=== PATIENT | male | born 1990 | race Caucasian/White ===

== ENCOUNTER 2016-07-24 16:10 | Emergency (ER) | payer MEDICAID ==
[2016-07-24 16:21] VITALS: TEMP 97.3
[2016-07-24] MEDS ORDERED: NS 1,000 ML IV ONE (16:47)
[2016-07-24 16:52] LABS: % IMMATURE GRANULYOCYTES 0.1 % (0.0-1.1); ABSOLUTE IMMATURE GRANULOCYTES 0.01 10^3/uL (0.00-0.10); ADD DIFF? NO; ADD MORPH? NO; ADD SCAN? NO; ATYPICAL LYMPHOCYTE FLAG 60 (0-99); FRAGMENT RBC FLAG 0 (0-99); HEMATOCRIT 48.1 % (40.0-51.0); HEMOGLOBIN 17.6 g/dL (13.7-17.5); LEFT SHIFT FLG 0 (0-99); LIPEMIA HEMOLYSIS FLAG 90 (0-99); MEAN CELL HEMOGLOBIN 32.7 pg (27.9-34.1); MEAN CELL HEMOGLOBIN CONCENTR. 36.6 g/dL (32.4-36.7); MEAN CELL VOLUME 89.4 fL (81.5-99.8); MEAN PLATELET VOLUME 11.7 fL (8.7-11.7); PLATELET CLUMPS FLAG 10 (0-99); PLATELET COUNT 199 10^3/uL (150-400); RED BLOOD CELL COUNT 5.38 10^6/uL (4.40-6.38); RED CELL DISTRIBUTION WIDTH 12.3 % (11.5-15.2)
[2016-07-24 17:02] LABS: PROTIME(PATIENT) 13.1 SEC (12.0-15.0)
--- NOTE | 2016-07-24 17:07 | EDPHY ---
HPI/HX/ROS/PE/MDM Narrative: CHIEF COMPLAINT: "I feel terrible" HPI: The patient is a 26 y/o male, with a history of diabetes, [place] from a bar complaining of feeling terrible and like his blood sugar is low. He reports his BGL has been fluctuating a lot recently and this morning, "my blood sugar felt low so I took 25 units around 10:00." He then "drank orange juice, maple syrup, and 7 pops to get my sugar up." He is unable to describe his symptoms apart from feeling "terrible" and "going cross-eyed." He did not check his BGL while these symptoms were present. He was apparently assessed by EMS at the bar , had his BGL checked, vomited, and ultimately refused transport. Further history limited as patient is a poor historian. REVIEW OF SYSTEMS: Aside from elements discussed in the HPI, a comprehensive 10-point review of systems was reviewed and is negative. PMH: Diabetes SOCIAL HISTORY: Denies alcohol or drug use today PHYSICAL EXAM: General:Patient is alert, in no acute distress. ENT:Eyes are normal to inspection. ENT inspection normal. Neck: Normal inspection. Full range of motion. Respiratory:No respiratory distress. Breath sounds normal bilaterally. Cardiovascular: Regular rate and rhythm. Strong peripheral pulses. Normal cap refill. Abdomen:The abdomen is nontender to palpation. There are no peritoneal signs. There are normal bowel sounds. Back: Normal to inspection. No tenderness to palpation. Skin: Normal color. No rash. Warm and dry. Extremities: Normal appearance. Full range of motion. Neuro: Oriented x3. Normal motor function. Normal sensory function. ED Course: IV established. Labs drawn including CBC, CHEM, lipase, LFT, PTPTT. 1L IV NS administered. 1705: Spoke with EMS crew that evaluated patient on scene earlier today. The medic reports the patient said he took 25 units of insulin instead of his normal 15 units this morning because his BGL has been high recently. When they assessed him on scene, his BGL was 48. They administered oral glucose, improving his BGL to 61. The patient vomited clear emesis once and refused transport to the ED. The medic heavily encouraged him to eat a large meal as soon as possible and go to the ED if his symptoms didn't improve. The patient said he would go to [facility]. 1800: BGL 63. Will continue to monitor BGL. 1909: BGL 99. 2019: BGL 260. Patient will be discharged home with instructions to follow up with his PCP on Wednesday. MDM: This patient presents to the emergency department with an unusual story, primarily focused on low blood sugar readings. His description of what happened prior to arrival at the hospital does not seem to line up with what EMS is able to tell us. The fact that the patient arrived from a bar certainly suggests that alcohol or other substances may be playing a role, but the patient denies this. We checked serial blood sugars here in the emergency department which are normal and continue to rise. I suspect the patient either inappropriately dosed himself with insulin or possibly was altered secondary to other means. I either way I see no signs of infectious process, hypoglycemia , hyperglycemia or DKA. - Data Points Laboratory Results: Laboratory Results 07/24/16 16:39 07/24/16 16:39 07/24/16 07/24/16 07/24/16 20:04 19:04 17:56 WBC RBC Hgb POC Hgb 15.3 gm/dL gm/dL (14.5-17.3) Hct POC Hct 45 % % (42.8-50.6) MCV MCH MCHC RDW Plt Count MPV Neut % (Auto) Lymph % (Auto) [place] % (Auto) Eos % (Auto) Baso % (Auto) Nucleat RBC Rel Count Absolute Neuts (auto) Absolute Lymphs (auto) Absolute Monos (auto) Absolute Eos (auto) Absolute Basos (auto) Absolute Nucleated RBC Immature Gran % Immature Gran # PT INR APTT POC Sodium 138 mEq/L mEq/L (134-144) Sodium POC Potassium 5.3 mEq/L H mEq/L (3.3-5.0) Potassium POC Chloride 100 mEq/L mEq/L (96-108) Chloride Carbon Dioxide Anion Gap POC BUN 14 mg/dL mg/dL (7-23) BUN Creatinine POC Creatinine 0.9 mg/dL mg/dL (0.8-1.5) Estimated GFR Glucose POC Glucose 294 mg/dL H mg/dL 99 mg/dL mg/dL 63 mg/dL L mg/dL (70-100) (70-100) (70-100) Calcium Total Bilirubin Conjugated Bilirubin Unconjugated Bilirubin AST ALT Alkaline Phosphatase Total Protein Albumin Lipase 07/24/16 07/24/1617 16:39 16:39 16:39 WBC 6.89 10^3/uL 10^3/uL (3.80-9.50) RBC 5.38 10^6/uL 10^6/uL (4.40-6.38) Hgb 17.6 g/dL H g/dL (13.7-17.5) POC Hgb Hct 48.1 % % (40.0-51.0) POC Hct MCV 89.4 fL fL (81.5-99.8) MCH 32.7 pg pg (27.9-34.1) MCHC 36.6 g/dL g/dL (32.4-36.7) RDW 12.3 % % (11.5-15.2) Plt Count 199 10^3/uL 10^3/uL (150-400) MPV 11.7 fL fL (8.7-11.7) Neut % (Auto) 71.8 % % (39.3-74.2) Lymph % (Auto) 14.8 % L % (15.0-45.0) [place] % (Auto) 13.2 % H % (4.5-13.0) Eos % (Auto) 0.0 % L % (0.6-7.6) Baso % (Auto) 0.1 % L % (0.3-1.7) Nucleat RBC Rel Count 0.0 % % (0.0-0.2) Absolute Neuts (auto) 4.94 10^3/uL 10^3/uL (1.70-6.50) Absolute Lymphs (auto) 1.02 10^3/uL 10^3/uL (1.00-3.00) Absolute Monos (auto) 0.91 10^3/uL H 10^3/uL (0.30-0.80) Absolute Eos (auto) 0.00 10^3/uL L 10^3/uL (0.03-0.40) Absolute Basos (auto) 0.01 10^3/uL L 10^3/uL (0.02-0.10) Absolute Nucleated RBC 0.00 10^3/uL 10^3/uL (0-0.01) Immature Gran % 0.1 % % (0.0-1.1) Immature Gran # 0.01 10^3/uL 10^3/uL (0.00-0.10) PT 13.1 SEC SEC (12.0-15.0) INR 1.00 (0.83-1.16) APTT 28.0 SEC SEC (23.0-38.0) POC Sodium Sodium 137 mEq/L mEq/L (134-144) POC Potassium Potassium 3.8 mEq/L mEq/L (3.5-5.2) POC Chloride Chloride 97 mEq/L mEq/L (97-110) Carbon Dioxide 28 mEq/l mEq/l (22-31) Anion Gap 12 mEq/L mEq/L (8-16) POC BUN BUN 13 mg/dL mg/dL (7-23) Creatinine 0.9 mg/dL mg/dL (0.7-1.3) POC Creatinine Estimated GFR > 60 Glucose 89 mg/dL mg/dL (70-100) POC Glucose Calcium 9.1 mg/dL mg/dL (8.5-10.4) Total Bilirubin 0.8 mg/dL mg/dL (0.1-1.4) Conjugated Bilirubin 0.3 mg/dL mg/dL (0.0-0.5) Unconjugated Bilirubin 0.5 mg/dL mg/dL (0.0-1.1) AST 53 IU/L IU/L (17-59) ALT 46 IU/L IU/L (21-72) Alkaline Phosphatase 125 IU/L IU/L (38-126) Total Protein 7.7 g/dL g/dL (6.3-8.2) Albumin 4.5 g/dL g/dL (3.5-5.0) Lipase 32.0 IU/L IU/L (23-300) Medications Given: Discontinued Medications Sodium Chloride (Ns) 1,000 mls @ 0 mls/hr IV ONCE ONE PRN Reason: Wide Open Stop: 07/24/16 16:48 Last Admin: 07/24/16 17:00 Dose: 1,000 mls Point of Care Test Results: 07/24/16 07/24/16 07/24/16 17:56 19:04 20:04 POC Sodium 138 POC Potassium 5.3 H POC Chloride 100 POC BUN 14 POC Creatinine 0.9 POC Glucose 63 L 99 294 H General Time Seen by Provider: 07/24/16 16:35 Initial Vital Signs: Initial Vital Signs Temperature (C) 36.3 C 07/24/16 16:18 Heart Rate 79 07/24/16 16:18 Respiratory Rate 16 07/24/16 16:18 Blood Pressure 135/94 H 07/24/16 16:18 O2 Sat (%) 98 07/24/16 16:18 O2 Delivery Mode Room Air Allergies/Adverse Reactions: No Known Allergies Allergy (Unverified 07/24/16 16:17) Home Medications: Medication Instructions Recorded Levemir 07/24/16 Novolog 07/24/16 Departure - Departure Disposition: Home, Routine, Self-Care Clinical Impression: Hypoglycemia, Altered mental status Condition: Good Instructions: Hypoglycemia in a Person with Diabetes (ED) Additional Instructions: Take your medications as directed and check your blood sugar regularly. Follow up with your primary care provider on Wednesday for continued issues with your blood sugar. Return to the ED for any worsening of condition. Referrals: [facility],. [Clinic] - As per Instructions Report Scribed for: Keith Stewart Report Scribed by: Yuli Khan Date of Report: 07/24/16 Time of Report: 16:41 Physician Review and Approval Statement: Portions of this note were transcribed by an ED scribe. I personally performed the history, physical exam, and medical decision making; and confirm the accuracy of the information in the transcribed note.
[2016-07-24 17:14] LABS: ALANINE AMINOTRANSFERASE 46 IU/L (21-72); ALBUMIN 4.5 g/dL (3.5-5.0); ALKALINE PHOSPHATASE 125 IU/L (38-126); ANION GAP 12 mEq/L (8-16); ASPARTATE AMINOTRANSFERASE 53 IU/L (17-59); BILIRUBIN,TOTAL 0.8 mg/dL (0.1-1.4); BILIRUBIN-CONJUGATED 0.3 mg/dL (0.0-0.5); BILIRUBIN-UNCONJUGATED 0.5 mg/dL (0.0-1.1); CALCIUM 9.1 mg/dL (8.5-10.4); CARBON DIOXIDE 28 mEq/l (22-31); CHLORIDE 97 mEq/L (97-110); CREATININE 0.9 mg/dL (0.7-1.3); GLOMERULAR FILTRATION RATE > 60; GLUCOSE 89 mg/dL (70-100); POTASSIUM 3.8 mEq/L (3.5-5.2); SODIUM 137 mEq/L (134-144); TOTAL PROTEIN 7.7 g/dL (6.3-8.2)
[2016-07-24 21:19] VITALS: BP 125/81; PULSE 97; RESP 12; O2SAT 95
== END 2016-07-24 21:22 | disposition home or self-care (01) ==
DX: E11.649 Type 2 diabetes mellitus with hypoglycemia without coma (principal); R41.82 Altered mental status, unspecified; Z79.4 Long term (current) use of insulin
CPT/HCPCS: 82947-QW

== ENCOUNTER 2016-09-28 09:51 | Emergency (ER) | payer MEDICAID ==
--- NOTE | 2016-09-28 09:50 | EDPHY ---
H & P Time Seen by Provider: 09/28/16 09:50 HPI/ROS: CHIEF COMPLAINT: glucose 22 HISTORY OF PRESENT ILLNESS: Patient has a long history of insulin-dependent diabetes and thinks he over did it last night. He had some sugared soda with dinner (myers stew) and took 15 units of NovoLog which he thinks he only should have taken 10. This morning his girlfriend noted him to be altered and hard to wake up and after 40 minutes of this she got him to the [facility] using [facility]. She did not report any seizure activity. At that time his glucose is noted to be 22 and he was transported by EMS. He got IV glucose and IM glucagon and on arrival he feels fine and is normally alert and conversant. REVIEW OF SYSTEMS: Eye: no change in vision ENT: no sore throat Cardiac: no chest pain or syncope Pulmonary: no cough or SOB Abdomen: no vomiting, diarrhea, abdominal pain Musculoskeletal: no back pain Skin: no rash Neuro: no headache Constitutional: no fever : no urinary symptoms A comprehensive 10 point review of systems is otherwise negative aside from elements mentioned in the history of present illness. PAST MEDICAL HISTORY: Includes diabetes type I and possible hemochromatosis Social history: Some alcohol last night, no drugs, here with his girlfriend. General Appearance: Alert and conversant, cooperative. Eyes: No scleral icterus. ENT, Mouth: Normal mucous membranes. No tongue laceration or abrasion. Respiratory: Normal respiratory effort, breath sounds equal, lungs are clear to auscultation. Cardiovascular: Regular rate and rhythm. Gastrointestinal: Abdomen is soft and non tender. Neurological: Alert and oriented x3. Normally conversant. Face symmetric, normal movement and sensation in all extremities. Not tremulous. Skin: Warm and dry, no rashes. Musculoskeletal: No peripheral edema and no joint swelling. Psychiatric: Not agitated. Emergency Department course/MDM: Patient ate food in the emergency department. His history is that he gave himself too much insulin in relation to his carbohydrate intake. Case discussed with Dr. Rm his overlock collar setter. She recommends that he is able to tolerate food and does not have repeat hypoglycemia he could be safely discharged with instructions to call her office today to discuss further insulin dosing. Repeat glucose in the emergency department is 270. I think that stroke or seizure or cardiac problem or intracranial trauma or other metabolic abnormality are all unlikely. Constitutional: Initial Vital Signs Temperature (C) 36.2 C 09/28/16 10:02 Heart Rate 87 09/28/16 10:02 Respiratory Rate 16 09/28/16 10:02 Blood Pressure 131/89 H 09/28/16 10:02 O2 Sat (%) 95 09/28/16 10:02 O2 Delivery Mode Room Air Allergies/Adverse Reactions: No Known Allergies Allergy (Unverified 07/24/16 16:17) Home Medications: Medication Instructions Recorded Levemir 07/24/16 Novolog 07/24/16 Lantus 100 UNITS/ML (*) 09/28/16 Medical Decision Making Differential Diagnosis: Differential for altered mental status considered including but not limited to hypoglycemia, head trauma, seizure, hypoglycemia Consult/Admit Bed Type: [place] [id number] - Data Points Laboratory Results: 09/28/16 10:31 POC Hgb 16.3 gm/dL gm/dL (14.5-17.3) POC Hct 48 % % (42.8-50.6) POC Sodium 140 mEq/L mEq/L (134-144) POC Potassium 4.5 mEq/L mEq/L (3.3-5.0) POC Chloride 99 mEq/L mEq/L (96-108) POC BUN 16 mg/dL mg/dL (7-23) POC Creatinine 0.9 mg/dL mg/dL (0.8-1.5) POC Glucose 270 mg/dL H mg/dL (70-100) Point of Care Test Results: 09/28/16 10:31 POC Sodium 140 POC Potassium 4.5 POC Chloride 99 POC BUN 16 POC Creatinine 0.9 POC Glucose 270 H Departure - Departure Disposition: Home, Routine, Self-Care Clinical Impression: Hypoglycemia due to type 1 diabetes mellitus Condition: Good Instructions: Hypoglycemia in a Person with Diabetes (ED) Referrals: Patient,NotPresent [Unknown] - As per Instructions Barbara Rm MD [Primary Care Provider] - As per Instructions
[2016-09-28 10:04] VITALS: RESP 16
[2016-09-28 11:46] VITALS: BP 134/95; PULSE 89; TEMP 98.4; O2SAT 94
== END 2016-09-28 12:12 | disposition home or self-care (01) ==
LOC: EDUNIT#
DX: E10.649 Type 1 diabetes mellitus with hypoglycemia without coma (principal)
CPT/HCPCS: 82947-QW

== ENCOUNTER 2016-11-02 11:54 | Inpatient (IN) | payer MEDICAID ==
[2016-11-02] MEDS ORDERED: NS 1,000 ML IV ONE ×3 (12:17→13:36)
[2016-11-02] MEDS ORDERED: ONDANSETRON 4 MG/2 ML VIAL IVP ONE (12:17)
--- NOTE | 2016-11-02 12:28 | EDPHY ---
H & P Smoking Status: Current every day smoker Time Seen by Provider: 11/02/16 12:13 HPI/ROS: CHIEF COMPLAINT: Vomiting, dehydration, insulin-dependent diabetic HISTORY OF PRESENT ILLNESS: 26-year-old male presents to the emergency department by private vehicle with multiple episodes of vomiting since last evening around 9:00 p.m.. The patient states that he continued to vomit all night long. He did urinate a small amount this morning. No diarrhea. He denies abdominal pain. He feels extremely dehydrated and achy all over. He denies chest pain or difficulty breathing. Denies headache. Denies neck or back pain. No reported trauma. No known ill contacts. He smokes marijuana every other day. No recent alcohol. He took his blood sugar this morning and it was over 400. He gave himself 3 units of NovoLog approximately 1 hour ago, 11 :30 a.m.. REVIEW OF SYSTEMS: Constitutional: No fever, no chills. Eyes: No double or blurry vision. ENT: No sore throat. Respiratory: No cough, no shortness of breath. Cardiac: No chest pain. Gastrointestinal: Vomiting as above. No diarrhea. Genitourinary: No dysuria. Musculoskeletal: No neck or back pain. Skin: No rashes. Neurological: No headache. (Claudine Copeland) Past Medical/Surgical History: The insulin-dependent diabetes since age 6. Last hemoglobin A1c was 5 months ago and was over 8. (Claudine Copeland) Social History: Single (Claudine Copeland) Physical Exam: General Appearance: Lethargic 122/76, heart rate 95, 95% on room air. Eyes: Pupils equal and round. Extraocular motions are all intact. Mild injection noted to the right eye without exudate. Left eye is clear. ENT: Mouth: Mucous membranes very dry. Respiratory: No wheezing, rhonchi, or rales, lungs are clear to auscultation. Cardiovascular: Regular rate and rhythm. Gastrointestinal: Abdomen is soft and nontender, no masses, no rebound or guarding, bowel sounds normal. Neurological: Alert and oriented x 3, cranial nerves II through XII grossly intact Skin: Warm and dry, no rashes. Musculoskeletal: Nontender to palpate along the cervical, thoracic or lumbar spine. Neck is supple. Extremities: Full range of motion and no peripheral edema. Psychiatric: Patient is oriented X 3, there is no agitation. (Claudine Copeland) Constitutional: Initial Vital Signs Temperature (C) 36.4 C 11/02/16 11:56 Heart Rate 95 11/02/16 11:56 Respiratory Rate 18 11/02/16 11:56 Blood Pressure 122/76 H 11/02/16 11:56 O2 Sat (%) 95 11/02/16 11:56 O2 Delivery Mode Room Air Allergies/Adverse Reactions: No Known Allergies Allergy (Verified 11/02/16 11:55) Home Medications: Medication Instructions Recorded Insulin Aspart [Novolog Flexpen] 15 - 25 unit SQ TIDMEAL 11/02/16 Insulin Detemir [Levemir Flextouch] 20 - 30 unit SQ HS 11/02/16 Medical Decision Making ED Course/Re-evaluation: 26-year-old male known history of insulin-dependent diabetes presents with vomiting and dehydration. The patient woke up this morning and had a blood sugar over 400 gave himself 3 units of NovoLog. He presented to the emergency department. Initial potassium was high at 6.3. Sodium 133, CO2 of 12 with a calculated anion gap of 24. Blood sugar was 450. Clinically I think this patient is in diabetic ketoacidosis. He received 2 L of IV normal saline initially and then is on his 3rd and 4th L currently. Patient apparently gave himself 4 units of NovoLog insulin while he was in the emergency department around 1:00 p.m.. I explained to the patient that is very important that he does not give himself his own medication while he is in the hospital. Patient verbalized understanding and agreed. Patient will be admitted to the ICU with DKA to Dr. Shelby. Case was discussed with Dr. Nicholas Darling who also evaluated the patient. The patient was started on insulin drip in the emergency department. (Claudine Copeland) Differential Diagnosis: Including but not limited to gastritis, dehydration, diabetic ketoacidosis, sepsis (Claudine Copeland) - Data Points Laboratory Results: Laboratory Results 11/02/16 12:20 11/02/16 12:20 Medications Given: Discontinued Medications Sodium Chloride (Ns) 1,000 mls @ 0 mls/hr IV ONCE ONE PRN Reason: Wide Open Stop: 11/02/16 12:18 Last Admin: 11/02/16 12:28 Dose: 1,000 mls Sodium Chloride (Ns) 1,000 mls @ 0 mls/hr IV ONCE ONE PRN Reason: Wide Open Stop: 11/02/16 13:11 Last Admin: 11/02/16 13:22 Dose: 1,000 mls Insulin Human Regular 100 unit / Miscellaneous Medication 1 ea/ Sodium Chloride 101 mls @ 6 mls/hr IV EDNOW ONE PRN Reason: Protocol Stop: 11/03/16 05:59 Last Admin: 11/02/16 13:58 Dose: 101 mls Sodium Chloride (Ns) 1,000 mls @ 0 mls/hr IV ONCE ONE PRN Reason: Wide Open Stop: 11/02/16 13:37 Last Admin: 11/02/16 13:37 Dose: 1,000 mls Magnesium Sulfate/Dextrose (Magnesium Sulf 1 Gm (Premix)) 100 mls @ 100 mls/hr IV ONCE ONE Stop: 11/03/16 08:47 Last Admin: 11/03/16 09:33 Dose: Not Given Insulin Glargine (Lantus Syringe) 20 units SC HS RAIZA Stop: 05/01/17 23:29 Last Admin: 11/02/16 23:42 Dose: 20 units Insulin Human Lispro (Humalog Lispro) 0 unit SC TIDMEAL RAIZA PRN Reason: Protocol Stop: 05/02/17 07:59 Last Admin: 11/03/16 06:38 Dose: 10 units Ondansetron HCl (Zofran) 4 mg IVP EDNOW ONE Stop: 11/02/16 12:18 Last Admin: 11/02/16 12:31 Dose: 4 mg Departure - Departure Disposition: [facility] Clinical Impression: Dehydration Diabetic ketoacidosis Qualifiers: Diabetes mellitus type: type 1 Diabetes mellitus complication detail: without coma Qualified Code(s): E10.10 - Type 1 diabetes mellitus with ketoacidosis without coma Condition: Fair
[2016-11-02 12:33] LABS: % IMMATURE GRANULYOCYTES 0.5 % (0.0-1.1); ABSOLUTE IMMATURE GRANULOCYTES 0.13 10^3/uL (0.00-0.10); ADD DIFF? NO; ADD MORPH? NO; ADD SCAN? NO; ATYPICAL LYMPHOCYTE FLAG 0 (0-99); FRAGMENT RBC FLAG 0 (0-99); HEMATOCRIT 51.2 % (40.0-51.0); LEFT SHIFT FLG 0 (0-99); LIPEMIA HEMOLYSIS FLAG 90 (0-99); MEAN CELL HEMOGLOBIN CONCENTR. 35.2 g/dL (32.4-36.7); MEAN CELL VOLUME 93.8 fL (81.5-99.8); MEAN PLATELET VOLUME 12.2 fL (8.7-11.7); PLATELET CLUMPS FLAG 0 (0-99); PLATELET COUNT 295 10^3/uL (150-400); RED BLOOD CELL COUNT 5.46 10^6/uL (4.40-6.38); RED CELL DISTRIBUTION WIDTH 12.7 % (11.5-15.2)
[2016-11-02 12:53] LABS: ANION GAP 24 mEq/L (8-16); CALCIUM 10.1 mg/dL (8.5-10.4); CARBON DIOXIDE 12 mEq/l (22-31); CHLORIDE 98 mEq/L (97-110); CREATININE 1.2 mg/dL (0.7-1.3); GLOMERULAR FILTRATION RATE > 60; GLUCOSE 470 mg/dL (70-100); SODIUM 134 mEq/L (134-144)
[2016-11-02 13:05] LABS: POTASSIUM 6.3 mEq/L (3.5-5.2)
[2016-11-02] MEDS ORDERED: INSULIN REGULAR HUMAN 100 UNIT, COSIGN. REQUIRED 1 EA in NS 100 ML IV ONE (13:10)
--- NOTE | 2016-11-02 13:24 | CPEKG ---
Heart Rate: 94 RR Interval: 638 P-R Interval: 156 QRSD Interval: 80 QT Interval: 344 QTC Interval: 431 P [place]: 76 QRS [place]: 71 T Wave [place]: 53 EKG Severity - NORMAL ECG - EKG Impression: SINUS RHYTHM Electronically Signed By: Aleks Li 02-Nov-2016 15:37:00
[2016-11-02] MEDS ORDERED: ONDANSETRON DISINTEGRATING 4 MG TAB PO PRN (13:40)
[2016-11-02] MEDS ORDERED: ACETAMINOPHEN 325 MG TAB PO PRN (13:40)
[2016-11-02] MEDS ORDERED: ONDANSETRON 4 MG/2 ML VIAL IVP PRN (13:40)
[2016-11-02 13:47] LABS: ANION GAP 17 mEq/L (8-16); CALCIUM 9.2 mg/dL (8.5-10.4); CARBON DIOXIDE 12 mEq/l (22-31); CHLORIDE 104 mEq/L (97-110); CREATININE 1.1 mg/dL (0.7-1.3); GLOMERULAR FILTRATION RATE > 60; GLUCOSE 401 mg/dL (70-100); SODIUM 133 mEq/L (134-144)
[2016-11-02 13:56] LABS: B-HYDROXYBUTYRATE 6.67 mmol/L (0.02-0.27)
--- NOTE | 2016-11-02 14:08 | GHP ---
[f rep st] HISTORY AND PHYSICAL DATE OF ADMISSION: 11/02/2016 CHIEF COMPLAINT: Vomiting. HISTORY OF PRESENT ILLNESS: This is a 26-year-old male with a history of type 1 diabetes. He state s about 9 o'clock last night he started vomiting. He is not having any diarrhea. He denies any abd ominal pain. He has had some cough. Did not eat dinner last night. No upper respiratory tract inf ection symptoms. No dysuria. He does feel achy. REVIEW OF SYSTEMS: A 10-point review of systems was obtained and, unless stated above, was negative . PAST MEDICAL HISTORY: 1. Type 1 diabetes. 2. Possible hemochromatosis. MEDICATIONS: Levemir, NovoLog. SOCIAL HISTORY: Does smoke occasional marijuana. No alcohol. FAMILY HISTORY: Reviewed, noncontributory. PHYSICAL EXAMINATION: VITAL SIGNS: Afebrile. Heart rates in the low 90s, blood pressure 123/82, o xygen saturation 98% on room air. GENERAL: The patient is well developed, in no apparent distress. HEENT: Nonicteric sclerae. Extraocular muscles intact. Dry mucous membranes. NECK: Supple. N o thyromegaly. LUNGS: Good effort. Clear to auscultation bilaterally. CARDIOVASCULAR: Regular r ate and rhythm. No murmurs, gallops. ABDOMEN: Positive bowel sounds. Soft, nontender, nondistend ed. No hepatosplenomegaly. EXTREMITIES: No clubbing, cyanosis, or edema. SKIN: Without rash. Wa rm, dry, and intact. NEUROLOGIC: Moving all 4 extremities equally. PSYCH: Normal affect. LABS: CO2 is 12 with an anion gap of 24. Blood sugar is 470. White count is 25, hemoglobin 18. ASSESSMENT: This is a 26-year-old male with type 1 diabetes, presenting with diabetic ketoacidosis. PLAN: DKA: The patient will be started on DKA protocol. I am unclear of the cause of this episode . He is not endorsing any localizing infectious symptoms. We will continue to monitor his symptoms as he gets better. /[id number]/MODL
[2016-11-02 14:12] LABS: B-HYDROXYBUTYRATE 6.62 mmol/L (0.02-0.27)
[2016-11-02 14:20] VITALS: TEMP 98.6
[2016-11-02] MEDS ORDERED: D50W 25 GM/50 ML SYR IVP PRN (15:29)
[2016-11-02] MEDS ORDERED: D5W 1,000 ML IV SCH (15:29)
[2016-11-02] MEDS ORDERED: INSULIN REGULAR HUMAN 100 UNIT/ML IVP PRN (15:29)
[2016-11-02] MEDS ORDERED: INSULIN REGULAR HUMAN 100 UNIT in NS 100 ML IV SCH ×2 (15:29→15:30)
[2016-11-02] MEDS ORDERED: PROTOCOL MAGNESIUM 1 DOSE IV PRN (15:34)
[2016-11-02] MEDS ORDERED: PROTOCOL POTASSIUM 1 DOSE MISC PRN (15:34)
--- NOTE | 2016-11-02 15:55 | GCON ---
[f rep st] CONSULTATION PULMONARY CRITICAL CARE DATE OF CONSULTATION: 11/02/2016 REFERRING PHYSICIAN: Yanely Shelby MD REASON FOR REFERRAL: Evaluation and management of hyperglycemia and diabetic ketoacidosis. HISTORY OF PRESENT ILLNESS: The patient is a 26-year-old male with a long history of type 1 diabete s. He has had prior admissions for hypoglycemia, but denies any admissions for hyperglycemia. He was well until yesterday when last night he started vomiting. He had about 2 hours of vomiting w ith no diarrhea or abdominal pain. He was unable to keep any food down. Overnight, he started to h ave some bilateral shoulder pain. He presented to the emergency department where he was started on IV fluids for a blood sugar of 470. He has now received 4 L of IV fluid and reports that his should er pain is improved. He has been able to start taking fluids without vomiting. PAST MEDICAL HISTORY: 1. Type 1 diabetes. 2. Possible hemochromatosis. MEDICATIONS: Levemir, NovoLog. ALLERGIES: None. SOCIAL HISTORY: The patient smokes marijuana occasionally. He denies alcohol. FAMILY HISTORY: Unremarkable. REVIEW OF SYSTEMS: A 10-point review of systems is remarkable only for the presence of some redness of his right eye that has not been painful or affected his vision. PHYSICAL EXAMINATION: GENERAL: The patient is awake, alert, and in no acute distress. VITAL SIGNS : Blood pressure is 110/85 with a heart rate of 98. He is afebrile. Oxygen saturations are 96% on room air. HEENT: Normocephalic and atraumatic. He has conjunctival injection on the right. NECK: No adenopathy. Trachea is midline. CHEST: Clear to auscultation. CARDIAC: Regular rate and rh ythm without murmur. ABDOMEN: Soft, nontender. Bowel sounds are present. EXTREMITIES: No clubbi ng, cyanosis, or edema. NEURO: The patient is alert and oriented. There are no gross motor or sen mariluz deficits. LABORATORY: Sodium is 133. Potassium is 7.0, up from 6.3. Anion gap is 17, down from 24. Glucose is 401, down from 470. Beta hydroxybutyrate level is 6.6. Blood gas shows a lactate of 3.6, a whi te blood count is 25.2 with a hemoglobin of 18.4. ASSESSMENT: 1. Diabetic ketoacidosis. This likely occurred as a result of the vomiting with poor p.o. intake a nd reduced insulin dosage as result of that. He is clinically feeling quite a bit better after rece iving several liters of fluid and insulin. 2. Vomiting. This occurred without really having nausea or anorexia. This is improved. 3. Hyperkalemia. This is likely a result of the patient's acidosis, but is quite high. He has no arrhythmias. 4. No arrhythmias currently. 5. Right conjunctivitis. RECOMMENDATIONS: Continue DKA protocol with IV insulin and IV fluids. I will check a chemistry bedoya el to confirm that his potassium is following as expected with correction of his acidosis. /[id number]/MODL
[2016-11-02] MEDS ORDERED: D5W 1/2 NS 1,000 ML IV SCH (16:30)
[2016-11-02 17:26] LABS: ANION GAP 15 mEq/L (8-16); CALCIUM 8.7 mg/dL (8.5-10.4); CARBON DIOXIDE 13 mEq/l (22-31); CHLORIDE 107 mEq/L (97-110); GLOMERULAR FILTRATION RATE > 60; GLUCOSE 160 mg/dL (70-100); POTASSIUM 4.4 mEq/L (3.5-5.2); SODIUM 135 mEq/L (134-144)
[2016-11-02 22:52] LABS: ANION GAP 6 mEq/L (8-16); CALCIUM 8.6 mg/dL (8.5-10.4); CARBON DIOXIDE 20 mEq/l (22-31); CHLORIDE 108 mEq/L (97-110); CREATININE 0.9 mg/dL (0.7-1.3); GLOMERULAR FILTRATION RATE > 60; GLUCOSE 133 mg/dL (70-100); MAGNESIUM 1.9 mg/dL (1.6-2.3); SODIUM 134 mEq/L (134-144)
[2016-11-02] MEDS ORDERED: INSULIN GLARGINE 100 UNITS/ML SYRINGE SC SCH (23:30)
[2016-11-03 05:27] VITALS: O2SAT 95
[2016-11-03 05:43] LABS: GLUCOSE 357 mg/dL (70-100); MAGNESIUM 1.8 mg/dL (1.6-2.3); POTASSIUM 4.8 mEq/L (3.5-5.2)
[2016-11-03 07:48] VITALS: BP 115/61; PULSE 85; RESP 14
[2016-11-03] MEDS ORDERED: MAGNESIUM SULF 1 GM/DEXTROSE 100 ML IV ONE (07:48)
[2016-11-03] MEDS ORDERED: INSULIN LISPRO 100 UNIT/ML SC SCH (08:00)
[2016-11-03] MEDS ORDERED: PARAMETERS MISC PRN (08:00)
[2016-11-03] MEDS ORDERED: D50W 25 GM/50 ML SYR IVP PRN (08:00)
--- NOTE | 2016-11-03 13:42 | GDS ---
[f rep st] DISCHARGE SUMMARY DISCHARGE DIAGNOSES: 1. Diabetic ketoacidosis. 2. Type 1 diabetes. 3. Possible viral gastroenteritis. HISTORY: This is a 26-year-old male who presented with profuse vomiting over the last 24 hours. HOSPITAL COURSE: Patient was in DKA. He was placed in insulin drip, as well as some IV fluids. Th e following day the gap is resolved, he was tolerating meals. He states that he began vomiting whic h he felt was not due to DKA and then it became DKA. He is not sure why he started vomiting, possib ly had food poisoning or viral gastroenteritis. This is better, and so he will be discharged home. /[id number]/MODL
== END 2016-11-03 09:30 | disposition home or self-care (01) | DRG 639 ==
LOC: F2N 13:32
PROVIDERS: ADMIT Internal Medicine; ATTEND Internal Medicine
DX: E10.10 Type 1 diabetes mellitus with ketoacidosis without coma (principal); A08.4 Viral intestinal infection, unspecified; H10.31 Unspecified acute conjunctivitis, right eye; E87.5 Hyperkalemia; Z79.4 Long term (current) use of insulin
CPT/HCPCS: 82947-QW; 96374; J1815; J2405

== ENCOUNTER 2017-03-26 19:01 | Emergency (ER) | payer MEDICAID ==
[2017-03-26 19:14] VITALS: TEMP 99
[2017-03-26] MEDS ORDERED: NS 1,000 ML IV ONE (20:23)
[2017-03-26 20:27] LABS: ADD DIFF? NO; ADD SCAN? NO; FRAGMENT RBC FLAG 0 (0-99); LEFT SHIFT FLG 0 (0-99); RED CELL DISTRIBUTION WIDTH 11.4 % (11.5-15.2)
[2017-03-26 20:48] LABS: COLOR PALE YELLOW; LEUKOCYTE ESTERASE,URINE NEGATIVE (NEGATIVE); NITRITE,URINE NEGATIVE (NEGATIVE)
--- NOTE | 2017-03-26 20:48 | CPEKG ---
Heart Rate: 68 RR Interval: 882 P-R Interval: 172 QRSD Interval: 78 QT Interval: 376 QTC Interval: 400 P [place]: 52 QRS [place]: 64 T Wave [place]: 47 EKG Severity - NORMAL ECG - EKG Impression: SINUS RHYTHM Electronically Signed By: Kayla He 26-Mar-2017 23:08:05
[2017-03-26 21:05] LABS: WBC,URINE NONE SEEN /hpf (0-3)
[2017-03-26 21:14] LABS: ANION GAP 12 mEq/L (8-16); CALCIUM 9.2 mg/dL (8.5-10.4); CARBON DIOXIDE 23 mEq/l (22-31); CHLORIDE 100 mEq/L (97-110); CREATININE 0.7 mg/dL (0.7-1.3); GLOMERULAR FILTRATION RATE > 60; GLUCOSE 317 mg/dL (70-100); POTASSIUM 4.1 mEq/L (3.5-5.2); SODIUM 135 mEq/L (134-144)
[2017-03-26 21:17] LABS: ATYPICAL LYMPHOCYTE FLAG 50 (0-99); HEMATOCRIT 45.6 % (40.0-51.0); MEAN CELL HEMOGLOBIN 33.3 pg (27.9-34.1); MEAN CELL VOLUME 88.7 fL (81.5-99.8); MEAN PLATELET VOLUME 12.3 fL (8.7-11.7); PLATELET CLUMPS FLAG 40 (0-99); PLATELET COUNT 153 10^3/uL (150-400); RED BLOOD CELL COUNT 5.14 10^6/uL (4.40-6.38)
[2017-03-26 21:26] LABS: MEAN CELL HEMOGLOBIN CONCENTR. 37.5 g/dL (32.4-36.7)
[2017-03-26 21:27] LABS: ADD MORPH? NO; HEMOGLOBIN 17.1 g/dL (13.7-17.5); LIPEMIA HEMOLYSIS FLAG 100 (0-99)
[2017-03-26 21:32] LABS: PLATELET ESTIMATE ADEQUATE (ADEQ)
[2017-03-26 21:43] LABS: TROPONIN I < 0.012 ng/mL (0.000-0.034)
--- NOTE | 2017-03-26 22:37 | EDPHY ---
H & P Smoking Status: Never smoked Time Seen by Provider: 03/26/17 19:59 HPI/ROS: CHIEF COMPLAINT: Pain all over HISTORY OF PRESENT ILLNESS: 27-year-old male presents to the emergency department reporting "pain all over" his body. He states that he has had these symptoms intermittently for the last at least 4-6 months. He also occasionally has pain in his chest. He denies difficulty breathing. It does however feel tight times in his chest. He denies a headache. He is an insulin-dependent diabetic and has not seen an roll reclaimer in quite some time. He has not had his A1c checked in at least 1 year. Currently does not have any chest pain. No headache. No nausea or vomiting. The patient was seen in the emergency department for months ago with DKA. He has been monitoring his blood sugars and they have been running high, 2-300. REVIEW OF SYSTEMS: Constitutional: No fever, no chills. Eyes: No double or blurry vision. ENT: No sore throat. Respiratory: No cough, no shortness of breath. Cardiac: No chest pain. Gastrointestinal: No abdominal pain, vomiting or diarrhea. Genitourinary: No dysuria. Musculoskeletal: Neck pain, back pain Skin: No rashes. Neurological: No headache. (Shanti Copelanda M) Past Medical/Surgical History: Insulin-dependent diabetic, history of DKA (Min,Claudine M) Social History: Single and lives in [place] (Min,Claudine M) Physical Exam: General Appearance: Alert, no distress. Vital signs are stable. Girlfriend at bedside. Eyes: Pupils equal and round. Extraocular motions are all intact. ENT: Mouth: Mucous membranes moist. Respiratory: No wheezing, rhonchi, or rales, lungs are clear to auscultation. Cardiovascular: Regular rate and rhythm. Gastrointestinal: Abdomen is soft and nontender, no masses, no rebound or guarding, bowel sounds normal. Neurological: Alert and oriented x 3, cranial nerves II through XII grossly intact Skin: Warm and dry, no rashes. Musculoskeletal: Nontender to palpate along the cervical, thoracic or lumbar spine. Neck is supple. Extremities: Full range of motion and no peripheral edema. Psychiatric: Patient is oriented X 3, there is no agitation. (Min,Claudine M) Constitutional: Initial Vital Signs Temperature (C) 37.2 C 03/26/17 19:12 Heart Rate 79 03/26/17 19:12 Respiratory Rate 20 03/26/17 19:12 Blood Pressure 124/81 H 03/26/17 19:12 O2 Sat (%) 95 03/26/17 19:12 O2 Delivery Mode Room Air Allergies/Adverse Reactions: No Known Allergies Allergy (Verified 03/26/17 19:12) Home Medications: Medication Instructions Recorded Insulin Aspart [Novolog Flexpen] 15 - 25 unit SQ TIDMEAL 11/02/16 Insulin Detemir [Levemir Flextouch] 20 - 30 unit SQ HS 11/02/16 Medical Decision Making - Diagnostics Imaging: I viewed and interpreted images myself - Diagnostics EKG Interpretation: EKG reveals normal sinus rhythm with no acute ST T wave abnormalities. This is reviewed by Dr. Kayla He. See interpretation in trace master. (Claudine Copeland) ED Course/Re-evaluation: 27-year-old male presents to the emergency department describing pain all over his body. Laboratory studies reveal normal chemistries. His blood sugar is elevated at 317. His potassium is normal at 4.1. Anion gap is 12. The patient received IV normal saline. He had an EKG which revealed normal sinus rhythm. Patient was observed for over 3 hours in the emergency department. He was feeling much better. He is comfortable being discharged home. I encouraged close follow-up with primary care provider as well as a roll reclaimer. He should continue to monitor his blood sugars. He knows that he should have an A1c soon. He will follow up with primary care provider next week. He was instructed to return to the emergency department if he had any change in symptoms or if he felt worse in any way. Case was discussed with Dr. Kayla He, secondary supervising physician, who did not directly evaluate the patient but agrees with treatment and plan. (Claudine Copeland) The patient was evaluated and managed by the physician product safety technical assistant. I have reviewed this chart and I agree with the findings and plan of care as documented , as indicated by my signature. I am the secondary supervising physician. ( Kayla He) Differential Diagnosis: Including but not limited to hyperglycemia, electrolyte abnormality, diabetic ketoacidosis, dehydration, myocardial infarction, pulmonary embolism (Claudine Copeland) - Data Points Laboratory Results: Laboratory Results 03/26/17 20:15 03/26/17 20:22 Medications Given: Discontinued Medications Sodium Chloride (Ns) 1,000 mls @ 0 mls/hr IV ONCE ONE PRN Reason: Wide Open Stop: 03/26/17 20:24 Last Admin: 03/26/17 20:38 Dose: 1,000 mls Departure - Departure Disposition: Home, Routine, Self-Care Clinical Impression: Insulin dependent diabetes mellitus Condition: Good Instructions: Type 1 Diabetes in Adults (ED) Additional Instructions: Continue to monitor your blood sugars. You should establish care with a primary care provider. You shows schedule appointment soon especially to have an A1C checked. Return to the emergency department if you develop any change in symptoms or if you feel worse in any way. Referrals: Nandini Hadley MD [place] [place] - 2-3 days, call for appt. ( Primary care provider substation superintendent)
[2017-03-26 22:50] VITALS: BP 96/58; PULSE 77; RESP 14; O2SAT 96
== END 2017-03-26 22:49 | disposition home or self-care (01) ==
DX: E11.9 Type 2 diabetes mellitus without complications (principal); Z79.4 Long term (current) use of insulin

== ENCOUNTER 2017-04-21 14:42 | Emergency (ER) | payer MEDICAID ==
[2017-04-21 14:49] VITALS: BP 117/78; PULSE 96; RESP 16; TEMP 98.8; O2SAT 98
--- NOTE | 2017-04-21 15:35 | EDPHY ---
H & P Time Seen by Provider: 04/21/17 15:21 HPI/ROS: CHIEF COMPLAINT: Insulin-dependent diabetic requesting medication HISTORY OF PRESENT ILLNESS: 27-year-old male presents to the emergency department requesting medication. The patient is a known insulin-dependent diabetic and he is having trouble establishing care with a primary care provider. He was seeing someone at the [facility]. He is requesting prescription for his regular and long-acting insulin. Currently he states he is feeling fine. His blood sugars have been around 130. His last hemoglobin A1c was just over 7. Denies chest pain or difficulty breathing. Denies abdominal pain or vomiting. No headache. REVIEW OF SYSTEMS: Constitutional: No fever, no chills. Eyes: No double or blurry vision. ENT: No sore throat. Respiratory: No cough, no shortness of breath. Cardiac: No chest pain. Gastrointestinal: No abdominal pain, vomiting or diarrhea. Genitourinary: No dysuria. Musculoskeletal: No neck or back pain. Skin: No rashes. Neurological: No headache. Past Medical/Surgical History: Insulin-dependent diabetic type 1 since age 6 Social History: Single and lives in [place] Smoking Status: Never smoked Physical Exam: General Appearance: Alert, no distress. Eyes: Pupils equal and round. Extraocular motions are all intact. ENT: Mouth: Mucous membranes moist. Respiratory: No wheezing, rhonchi, or rales, lungs are clear to auscultation. Cardiovascular: Regular rate and rhythm. Gastrointestinal: Abdomen is soft and nontender, no masses, no rebound or guarding, bowel sounds normal. Neurological: Alert and oriented x 3, cranial nerves II through XII grossly intact Skin: Warm and dry, no rashes. Musculoskeletal: Nontender to palpate along the cervical, thoracic or lumbar spine. Neck is supple. Extremities: Full range of motion and no peripheral edema. Psychiatric: Patient is oriented X 3, there is no agitation. Constitutional: Initial Vital Signs Temperature (C) 37.1 C 04/21/17 14:46 Heart Rate 96 04/21/17 14:46 Respiratory Rate 16 04/21/17 14:46 Blood Pressure 117/78 04/21/17 14:46 O2 Sat (%) 98 04/21/17 14:46 O2 Delivery Mode Room Air Allergies/Adverse Reactions: No Known Allergies Allergy (Verified 04/21/17 14:45) Home Medications: Medication Instructions Recorded Insulin Aspart [Novolog Flexpen] 15 - 25 unit SQ TIDMEAL #100 04/21/17 [email or web address] Insulin Detemir [Levemir Flextouch] 20 - 30 unit SQ HS #100 [email or web address] 04/21/17 Medical Decision Making ED Course/Re-evaluation: Patient was given a refill of his NovoLog and Levemir insulin. The disease case manager rn has arranged for him to have follow-up appointment at [facility]. Patient will be discharged. Differential Diagnosis: Including but not limited to medication noncompliance, medication refill request , insulin-dependent diabetic, electrolyte abnormality, DKA Departure - Departure Disposition: Home, Routine, Self-Care Clinical Impression: Insulin dependent diabetes mellitus, Medication requested Condition: Good Instructions: Type 1 Diabetes in Adults (ED) Additional Instructions: Continue your insulin as prescribed. Keep scheduled follow-up appointment with [facility]. Return to the emergency department if you have any problems with follow-up or if you have any other concerns. Case Management: You have an appointment tomorrow morning at 10:50 AM at [facility]. Please be on time, bring a photo ID, and list of any/all medication you are taking. I have faxed your ER records from today to the clinic. Check in at the green desk and your provider will be Maegan Hammer The [address] [address] Referrals: NONE *PRIMARY CARE P,. [Primary Care Provider] - As per Instructions Prescriptions: Insulin Aspart [Novolog Flexpen] 15 - 25 unit SQ TIDMEAL #100 [email or web address] Insulin Detemir [Levemir Flextouch] 20 - 30 unit SQ HS #100 [email or web address]
--- NOTE | 2017-04-21 16:35 | ASMTCMCOM ---
CM Note CM Note Notes: Chart reviewed for patient who is a 27 yo insulin dependent diabetic. He has visited the ER twice in the past month stating that he does not have any primary care physicin. patient is current with [place] medicaid. I spoke with patient about the importance of following up with a PCP and offered to make an appointment for him at the [facility] and patient agrees to this. I have spoken with Eula at [facility] and confirmed an appointment for patient tomorrow at 1050 AM. I have provided patient with the details of his appointment in his discharge summary and have gone over this with him. He verbalizes understanding and asures me that he will follow up with this appointment. Date Signed: 04/21/2017 04:34 PM Electronically Signed By:Tina Tay RN
== END 2017-04-21 15:56 | disposition home or self-care (01) ==
DX: Z76.0 Encounter for issue of repeat prescription (principal); E10.9 Type 1 diabetes mellitus without complications

== ENCOUNTER 2018-05-14 00:12 | Observation (INO) | payer MEDICAID ==
[2018-05-14] MEDS ORDERED: ceFAZolin 2 GM/DEXTROSE 100 ML IV ONE (00:14)
[2018-05-14] MEDS ORDERED: NS 1,000 ML IV ONE ×3 (00:14→01:59)
[2018-05-14] MEDS ORDERED: TDAP ADULT 0.5 ML INJ (BOOSTRIX) IM ONE (00:15)
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
[2018-05-14] MEDS ORDERED: NALOXONE HCL 0.4 MG/ML INJ IVP ONE (00:36)
[2018-05-14] MEDS ORDERED: NALOXONE HCL 2 MG/2 ML SYR IVP ONE (00:38)
[2018-05-14] MEDS ORDERED: INSULIN REGULAR HUMAN 100 UNIT, COSIGN. REQUIRED 1 EA in NS 100 ML IV ONE (00:54)
[2018-05-14 01:00] LABS: INR 1.01 (0.83-1.16); PROTIME(PATIENT) 13.5 SEC (12.0-15.0)
[2018-05-14 01:01] LABS: PLATELET COUNT 333 10^3/uL (150-400)
[2018-05-14] MEDS ORDERED: ONDANSETRON DISINTEGRATING 4 MG TAB PO PRN (01:44)
[2018-05-14] MEDS ORDERED: ONDANSETRON 4 MG/2 ML VIAL IVP PRN (01:44)
[2018-05-14] MEDS ORDERED: LORazepam 0.5 MG TAB PO PRN (01:44)
[2018-05-14] MEDS ORDERED: ACETAMINOPHEN 325 MG TAB PO PRN ×2 (01:44→03:23)
[2018-05-14] MEDS ORDERED: NALOXONE HCL 0.4 MG/ML INJ IVP PRN (03:23)
[2018-05-14 03:32] LABS: PLATELET COUNT 211 10^3/uL (150-400)
[2018-05-14] MEDS ORDERED: D50W 25 GM/50 ML VIAL IVP PRN (03:43)
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
[2018-05-14] MEDS ORDERED: INSULIN LISPRO 100 UNIT/ML SC ONE (06:07)
[2018-05-14] MEDS: GABAPENTIN 400 MG CAP PO SCH ×3 (06:26→22:07)
[2018-05-14] MEDS ORDERED: METOCLOPRAMIDE 5 MG TAB PO PRN (06:40)
[2018-05-14] MEDS ORDERED: HYDROmorphONE/DILAUDID 2 MG TAB PO PRN (08:23)
--- NOTE | 2018-05-14 08:28 | TRAUMAPNT ---
Trauma Tertiary Progress Note New Findings: He complains of left hand, first ray pain ( metacarpal), C/o fullness in jaw,. Vision blurry in right eye. If still blurry with corrective lenses will optain ophthalmology consult. Assessment/Plan: PAD#0 05/14/2018 Assessment: Neurologic: oriented x 3, GCS 15, no focal or lateralizing findings. C-spine CT negative Ophthalmologic eval: Right raccoon eye. normally wears contacts but not wearing now, globe appears intact. vision blurry. Lacerations: all approximated - will have patient shower Pulmonary: good air exchange. no chest injury GI: passing flatus Mandible:c/o fullness DM managed by medicine Plan: DC c-collar Speech to see - re: cog eval and recommendations for patient regarding low stim environment. Obtain his glasses- if vision still blurry, will request ophthalmologic consult Mandible: will review CT Left hand: will obtain X-rays Subjective: I'm sore Objective: Vital Signs Temp Pulse Resp BP Pulse Ox 36.6 C 87 18 140/82 H 95 05/14/18 07:35 05/14/18 07:35 05/14/18 07:35 05/14/18 07:35 05/14/18 07:35 Laboratory Results 05/14/18 03:10 05/14/18 03:10 05/13/18 05/14/18 05/15/18 05:59 05:59 05:59 Intake Total 3500 Output Total 1375 Balance 2125 PT 13.5 SEC (12.0-15.0) 05/14/18 00:00 INR 1.01 (0.83-1.16) 05/14/18 00:00 - C-Spine Clearance Cervical Spine Cleared: Yes Provider who Cleared Cervical Spine: [place] Time Cervical Spine was Cleared: 08:15 Physical Exam - Physical Exam General Appearance: WD/WN, alert, mild distress, other (multiple facial lacerations ( repaired)) EENT: PERRL/EOMI, other (Right eye lid contusions. vision grossly intact but blurry without corrective lenses) Neck: non-tender, full range of motion, supple Respiratory: chest non-tender, lungs clear, normal breath sounds Cardiac/Chest: regular rate, rhythm Abdomen: normal bowel sounds, non-tender, soft Male Genitalia: deferred Rectal: deferred Back: Normal inspection Skin: normal color, warm/dry Extremities: normal range of motion, non-tender, normal inspection Neuro/Psych: no motor/sensory deficits, alert, normal mood/affect, oriented x 3 , other (GCS 15)
[2018-05-14] MEDS ORDERED: ACETAMINOPHEN 325 MG TAB PO SCH (08:30)
[2018-05-14] MEDS: KETOROLAC 30 MG/1 ML SDV IVP SCH ×3 (08:45→20:37)
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
[2018-05-14] MEDS: INSULIN LISPRO 100 UNIT/ML SC SCH ×3 (09:06→18:16)
[2018-05-14] MEDS: ACETAMINOPHEN 500 MG TAB PO SCH ×2 (09:07→18:16)
[2018-05-14 09:14] LABS: PLATELET COUNT 231 10^3/uL (150-400)
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
[2018-05-14] MEDS ORDERED: INSULIN GLARGINE 100 UNITS/ML UNIT SC SCH ×2 (21:00)
[2018-05-15] MEDS: ACETAMINOPHEN 500 MG TAB PO SCH ×2 (01:17→11:05)
[2018-05-15] MEDS: KETOROLAC 30 MG/1 ML SDV IVP SCH ×3 (02:38→15:16)
[2018-05-15 04:50] LABS: PLATELET COUNT 199 10^3/uL (150-400)
[2018-05-15] MEDS: INSULIN LISPRO 100 UNIT/ML SC SCH ×2 (07:25→11:58)
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
[2018-05-15] MEDS: GABAPENTIN 400 MG CAP PO SCH ×2 (08:41→15:16)
[2018-05-15] MEDS ORDERED: INSULIN GLARGINE 100 UNITS/ML UNIT SC SCH (13:54)
--- NOTE | 2018-05-15 15:41 | TRAUMAPN ---
Trauma Progress Note Assessment/Plan: PAD#0 05/14/2018 Assessment: Neurologic: oriented x 3, GCS 15, no focal or lateralizing findings. C-spine CT negative Ophthalmologic eval: Right raccoon eye. normally wears contacts but not wearing now, globe appears intact. vision blurry. Lacerations: all approximated - will have patient shower Pulmonary: good air exchange. no chest injury GI: passing flatus Mandible:c/o fullness DM managed by medicine Plan: DC c-collar Speech to see - re: cog eval and recommendations for patient regarding low stim environment. Obtain his glasses- if vision still blurry, will request ophthalmologic consult Mandible: will review CT Left hand: will obtain X-rays PAD#1 05/15/2018 Assessment: Doing well, VSS, set for discharge but still pending a visual field re-eval when lens available Plan: Re-assess visual octton and consider discharge Subjective: I may occasionally see a black dot with my right eye when I close my eye. Objective: Vital Signs Temp Pulse Resp BP Pulse Ox 36.3 C 87 16 138/80 H 93 05/15/18 12:00 05/15/18 12:00 05/15/18 12:00 05/15/18 12:00 05/15/18 12:00 Laboratory Results 05/15/18 04:20 05/14/18 08:25 05/14/18 05/15/18 05/16/18 05:59 05:59 05:59 Intake Total 3500 500 Output Total 1375 400 Balance 2125 100 PT 13.5 SEC (12.0-15.0) 05/14/18 00:00 INR 1.01 (0.83-1.16) 05/14/18 00:00 - C-Spine Clearance Cervical Spine Cleared: Yes Provider who Cleared Cervical Spine: [place] Time Cervical Spine was Cleared: 08:15 Physical Exam - Physical Exam General Appearance: WD/WN, alert, no apparent distress EENT: other (lacerations approximated, clean and dry) Neck: non-tender, full range of motion, supple Respiratory: chest non-tender, lungs clear, normal breath sounds Cardiac/Chest: regular rate, rhythm Abdomen: normal bowel sounds, non-tender, soft Male Genitalia: deferred Rectal: deferred Back: Normal inspection Skin: normal color, warm/dry Extremities: normal range of motion, non-tender Neuro/Psych: no motor/sensory deficits, alert, normal mood/affect, oriented x 3 Time Spent w/Patient (minutes): 15
[2018-05-15 16:11] VITALS: BP 132/88
--- NOTE | 2018-05-15 17:02 | ASMTLACE ---
LACE Length of stay for Answers: 1 day current admission Acuity / Level of Answers: Yes Care: Did the patient have an inpatient admission? Comorbidities - select Answers: Diabetes (uncontrolled or all that apply controlled) Other Notes: Facial lacerations # of Emergency department Answers: 1-2 visits in the last 6 months Social determinants Answers: History of substance abuse (ETOH, street drugs, prescription drugs, etc.) Score: 10 Date Signed: 05/15/2018 05:02 PM Electronically Signed By:Tamela Qureshi LCSW
--- NOTE | 2018-05-15 17:03 | ASMTCMCOM ---
CM Note CM Note Notes: Patient was a possible discharge today, but had difficulty with his vision. His chart has been copied for the [facility]. (Look in chart slot for [facility] envelope-need to update and put meds and orders) CM to follow. Date Signed: 05/15/2018 05:03 PM Electronically Signed By:Tamela Qureshi LCSW
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
--- NOTE | 2018-05-15 17:08 | ASMTDCNOTE ---
Case Management Discharge Discharge Order Complete? Answers: Yes Patient to Obtain Answers: via Family Medications Transportation Arranged Answers: Family/Friends Transport will Pick (Date 05/15/2018 05:00 PM & Time) Faxed Final Orders Answers: Yes Notes: Faxed orders to nursing home Family Notified Answers: Yes Notes: Family here to transpor t Discharge Comments Notes: Patient vision OK'd by OT for D/C. Dr. Agustin D/C home. [facility] contacted about patient's discharge. Patient information won't be faxed to the nursing home until CM can determine Wednesday if he is there or not. Patient was given D/C instructions and scripts by the RN. Date Signed: 05/15/2018 05:08 PM Electronically Signed By:Tamela Qureshi LCSW
--- NOTE | 2018-05-15 17:11 | ASMTCMCOM ---
CM Note CM Note Notes: The [place] [employer] here at [facility] and to take patient to retirement. Records given to them for the clinic. Date Signed: 05/15/2018 05:11 PM Electronically Signed By:Tamela Qureshi LCSW
== END 2018-05-15 17:13 ==
LOC: EDUNIT# → INTOOBSV 01:45 → F3N 04:19
PROVIDERS: ADMIT Family Medicine; ATTEND Surgery
DX: S06.0X1A Concussion with loss of consciousness of 30 minutes or less, initial encounter (principal); S01.80XA Unspecified open wound of other part of head, initial encounter; S01.01XA Laceration without foreign body of scalp, initial encounter; S01.111A Laceration without foreign body of right eyelid and periocular area, initial encounter; F10.920 Alcohol use, unspecified with intoxication, uncomplicated; Y90.4 Blood alcohol level of 80-99 mg/100 ml; E10.65 Type 1 diabetes mellitus with hyperglycemia; E10.43 Type 1 diabetes mellitus with diabetic autonomic (poly)neuropathy; E87.2 Acidosis; E86.0 Dehydration; M79.645 Pain in left finger(s); H53.9 Unspecified visual disturbance; Y00.XXXA Assault by blunt object, initial encounter; R40.2412 Glasgow coma scale score 13-15, at arrival to emergency department; D51.0 Vitamin B12 deficiency anemia due to intrinsic factor deficiency; K31.84 Gastroparesis; Z79.4 Long term (current) use of insulin; Z23 Encounter for immunization
CPT/HCPCS: 12002; 12013; 12053; 70450; 71045; 72125; 73130; 92523; 97127; 97161; 97165; 97530; G0378; G8978; G8979; G8980; 80305; 82435-PO; 82565-PO; 82947-PO; 84132-PO; 84295-PO; 84520-PO; 85014-PO; G0480; G0515-GN; J0690; J1815; J1885; J2310

== ENCOUNTER 2018-06-08 15:19 | Emergency (ER) | payer MEDICAID ==
[2018-06-08] MEDS ORDERED: HALOPERIDOL LACT 5 MG/ML INJ ONE (15:28)
[2018-06-08] MEDS ORDERED: HALOPERIDOL LACT 5 MG/ML INJ IVP ONE (15:29)
[2018-06-08] MEDS ORDERED: SKIN ADHESIVE (DERMABOND) 1 EACH TP ONE (15:32)
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
[2018-06-08] MEDS ORDERED: LORazepam 2 MG/ML INJ IVP ONE ×3 (15:45→17:39)
[2018-06-08] MEDS ORDERED: NS 500 ML IV ONE (15:55)
[2018-06-08 16:04] LABS: PLATELET COUNT 322 10^3/uL (150-400)
[2018-06-08] MEDS ORDERED: NS 1,000 ML IV ONE (17:44)
[2018-06-08 20:56] LABS: PLATELET COUNT 227 10^3/uL (150-400)
[2018-06-09 07:56] VITALS: BP 128/70
--- NOTE | 2018-06-09 10:11 | ASMTTCLDSP ---
TLC Discharge Disposition Disposition: Answers: Discharge If Answers: Yes DISCHARGED: Patient/family given suicide hotline info & SAMHSA brochure? Disposition Notes: Notes: Pt stated commitment or ability to keep self safe, denied thoughts of self harm or harm to others. Pt expressed a desire to f/u with PCP at [facility] and was given information for [facility]. Pt was given local hotline information and SAMHSA brochure After an Attempt. Discharge Concerns/Recommendations: Notes: In consultation with [facility] ED physician, Zahra Chappell MD, Dr. Chappell concurred that pt does not appear to meet 27-65 criteria requiring psychiatric hospitalization as pt does not appear to be an imminent risk of harm to self/others/gravely disabled due to a mental illness condition. Was patient given the Answers: Not applicable Inpatient Behavioral Health Prohibited Belongings List while in the ED? Date Signed: 06/09/2018 10:11 AM Electronically Signed By:Linwood Lai
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
[2018-06-10 14:48] LABS: HIV TYPE 1 AND 2 NEGATIVE (NEGATIVE)
== END 2018-06-09 07:59 | disposition home or self-care (01) ==
LOC: EDUNIT#
PROC: GZ11ZZZ Psychological Tests, Personality and Behavioral (ICD-10-PCS; principal; 2018-06-08)
DX: R41.82 Altered mental status, unspecified (principal); E86.9 Volume depletion, unspecified
CPT/HCPCS: 80305; 96374; G0480; J1630; J2060

== ENCOUNTER → 2018-07-12 | Outpatient (CLI) | payer MEDICAID ==
--- NOTE | 2018-07-13 11:43 | CPEEG ---
[f rep st] ELECTROENCEPHALOGRAM DATE OF STUDY: 07/12/2018 DATE OF INTERPRETATION: 07/13/2018 INTERPRETATION: Normal EEG during wakefulness and sleep. There were no potentially epileptogenic ab normalities present during the recording. REPORT: This EEG contains 10 Hz alpha activity to the posterior head regions. The background activi ty was normal and symmetric. There was no abnormal activation at rest or during photic stimulation o r hyperventilation. The patient became drowsy and fell asleep during the study. There was no abnorm al activation during drowsiness, sleep, or during times of arousal. /[id number]
== END ==
LOC: FCPNEURO 14:39
PROVIDERS: ATTEND Psychiatry & Neurology Neurology
DX: R40.4 Transient alteration of awareness (principal)